=== PATIENT | female | born 1950 | race Caucasian/White ===

== ENCOUNTER 2016-11-17 13:39 | Emergency (ER) | payer MEDICARE ==
[2016-11-17 14:12] LABS: BASO % 0.2 % (0.1-1.2); EOS # 0.3 10_X3_uL (0.0-0.4); EOS % 5.2 % (0.7-5.8); GRAN % 50.2 % (34.0-71.1); HEMOGLOBIN 11.3 g/dL (11.2-15.7); LYMPH # 1.9 10_X3_uL (1.2-3.7); LYMPH % 31.8 % (19.3-51.7); MEAN CORPUSCULAR HEMOGLOBIN 28.7 pg (27.0-33.0); MEAN CORPUSCULAR HGB CONC 31.4 g/dL (32.0-36.0); MEAN CORPUSCULAR VOLUME 91.4 fL (79-95); MEAN PLATELET VOLUME 10.9 fl (7.5-11.5); MONO # 0.8 10_X3_uL (0.2-0.9); MONO % 12.6 % (4.7-12.5); PLATELET COUNT 116 x10_3/uL (182-369); RED BLOOD COUNT 3.94 x10_6/uL (3.9-5.2)
[2016-11-17 14:27] LABS: CALCIUM 8.7 mg/dL (8.7-10.7)
[2016-11-17 14:43] LABS: POTASSIUM 5.7 mmol/L (3.5-5.1)
== END 2016-11-17 15:45 | disposition home or self-care (01) ==
LOC: ER 13:39
PROVIDERS: Internal Medicine
DX: J44.0 Chronic obstructive pulmonary disease with (acute) lower respiratory infection (principal); J20.9 Acute bronchitis, unspecified; Z90.710 Acquired absence of both cervix and uterus; Z79.899 Other long term (current) drug therapy; Z79.891 Long term (current) use of opiate analgesic
CPT/HCPCS: 36415; 71020; 80048; 82550; 82553; 83880; 85025; 87070; 87205; 93005; 94664; 99284; 99285-25

== ENCOUNTER 2017-02-22 18:14 | Emergency (ER) | payer MEDICARE ==
[2017-02-22 19:08] LABS: BASO % 0.6 % (0.1-1.2); EOS # 0.3 10_X3_uL (0.0-0.4); EOS % 6.2 % (0.7-5.8); GRAN # 2.5 10_X3_uL (1.6-6.1); GRAN % 46.6 % (34.0-71.1); HEMATOCRIT 34.4 % (34-45); HEMOGLOBIN 10.6 g/dL (11.2-15.7); LYMPH # 1.9 10_X3_uL (1.2-3.7); LYMPH % 35.3 % (19.3-51.7); MEAN CORPUSCULAR HEMOGLOBIN 27.7 pg (27.0-33.0); MEAN CORPUSCULAR HGB CONC 30.8 g/dL (32.0-36.0); MEAN CORPUSCULAR VOLUME 89.8 fL (79-95); MEAN PLATELET VOLUME 11.1 fl (7.5-11.5); MONO # 0.6 10_X3_uL (0.2-0.9); MONO % 11.3 % (4.7-12.5); PLATELET COUNT 118 x10_3/uL (182-369); RED BLOOD COUNT 3.83 x10_6/uL (3.9-5.2); RED CELL DISTRIBUTION WIDTH 15.4 % (11.7-14.4); WHITE BLOOD COUNT 5.3 x10_3/uL (4.0-10.0)
[2017-02-22 19:23] LABS: ALBUMIN 3.5 gm/dL (3.4-5.0); BILIRUBIN,TOTAL 0.47 mg/dL (0.0-1.0); CALCIUM 9.4 mg/dL (8.7-10.7); CREATININE 1.4 mg/dL (0.6-1.3); TOTAL PROTEIN 6.4 gm/dL (6.4-8.2)
[2017-02-22 19:40] LABS: POTASSIUM 5.8 mmol/L (3.5-5.1)
== END 2017-02-22 20:10 | disposition home or self-care (01) ==
LOC: ER 18:14
PROVIDERS: General Practice
DX: D47.3 Essential (hemorrhagic) thrombocythemia (principal); I50.9 Heart failure, unspecified; I87.8 Other specified disorders of veins; R60.0 Localized edema; N18.9 Chronic kidney disease, unspecified; R06.02 Shortness of breath; E87.5 Hyperkalemia; E66.01 Morbid (severe) obesity due to excess calories; Z99.81 Dependence on supplemental oxygen; J44.9 Chronic obstructive pulmonary disease, unspecified; G89.29 Other chronic pain; G47.30 Sleep apnea, unspecified; Z79.899 Other long term (current) drug therapy; Z79.4 Long term (current) use of insulin; Z79.891 Long term (current) use of opiate analgesic
CPT/HCPCS: 36415; 71010; 80053; 83605; 83880; 85025; 87040; 99283; 99284-25